=== PATIENT | female | born 1990 | race Caucasian/White ===

== ENCOUNTER 2017-02-08 12:08 | Emergency (ER) | payer OTHER ==
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
[~2017-02-08 12:08] MED LIST: AMOXICILLIN875 MG PO; NO MEDICATIONS; PHENERGAN PO; PRENATAL1 TA1 PO; ZOFRAN ODT4 MG PO
== END 2017-02-08 13:37 | disposition home or self-care (01) ==
LOC: SED 12:08
DX: M25.552 Pain in left hip (principal); V49.40XA Driver injured in collision with unspecified motor vehicles in traffic accident, initial encounter; Y92.410 Unspecified street and highway as the place of occurrence of the external cause
CPT/HCPCS: 73502; 84703; 99283